=== PATIENT | female | born 2000 | race Caucasian/White ===

== ENCOUNTER → 2019-01-07 | Outpatient (CLI) | payer OTHER ==
[2019-01-07 09:38] LABS: PLATELET COUNT, AUTOMATED 298 K/uL (150-450)
--- NOTE | 2019-01-07 10:47 | RADIOLOGY IMAGING REPORT ---
FACILITY: [facility] [place] PATIENT NAME: Ruth Saravia : 2000 MR: [id number] V: [id number] EXAM DATE: ORDERING PHYSICIAN: [facility] TECHNOLOGIST: [place] [facility] [place] Ruth Saravia : 2000 Visit/Account:[id number] Date of Sevice: 01/07/2019 GALLBLADDER ADDITIONAL PERTINENT HISTORY: Right upper quadrant pain with eating COMPARISON STUDIES: None. FINDINGS: Liver: Negative. Gallbladder: Negative. Common duct: Normal. Measuring 2 mm. Pancreas: Negative. Right kidney: Negative, measuring 9.5 cm in length. Proximal IVC/Aorta: Negative. Ascites: Negative. IMPRESSION: Normal right upper quadrant abdominal sonogram. Report Dictated By: Krystian Perkins MD at 01/07/2019 10:41 AM Report E-Signed By: Krystian Perkins MD at 01/07/2019 10:42 AM WSN:[email or web address]
== END ==
LOC: US 08:32
DX: R10.11 Right upper quadrant pain (principal)
CPT/HCPCS: 36415; 76705; 82040; 82247; 82310; 82374; 82435; 82565; 82947; 84075; 84132; 84155; 84295; 84450; 84460; 84520; 85025

== ENCOUNTER 2019-02-20 22:10 | Emergency (ER) | payer OTHER ==
--- NOTE | 2019-02-20 22:12 | ER Report ---
History and Physical Time Seen By MD: 22:10 HPI/ROS CHIEF COMPLAINT: Shortness of breath, chest pain, nausea HISTORY OF PRESENT ILLNESS: 19-year-old female presents with sudden onset one hour of epigastric, chest discomfort with nausea and shortness of breath. Patient worked out earlier in the day. She denies any injury or pain with exertion. She denies recent illness or infectious symptoms. Patient reports eating out for dinner. And then noting onset of symptoms. Shortly after arrival, patient vomited up her dinner. She began to feel better. REVIEW OF SYSTEMS: Respiratory: As above Cardiovascular: As above Gastrointestinal: As above Musculoskeletal: No back pain. Allergies: Coded Allergies: No Known Drug Allergies (Unverified , 02/20/19) Home Meds Active Scripts Ondansetron 4 Mg Odt (ONDANSETRON 4 MG ODT) 4 Mg Tab.rapdis, 4 MG PO Q6H PRN for NAUSEA/VOMITING, #10 TAB Prov:DIONNE GAMING DO 02/20/19 Reported Medications [ Control] No Conflict Check 02/20/19 Reviewed Nurses Notes: Yes Old Medical Records Reviewed: Yes Constitutional Vital Sign - Last 24 Hours 02/20/19 02/20/19 02/20/19 02/20/19 22:12 22:16 22:22 22:22 Temp 98.8 Pulse 104 99 Resp 14 18 B/P (MAP) 123/79 (94) 123/79 Pulse Ox 94 96 O2 Delivery Room Air Room Air 02/20/19 02/20/19 02/20/19 02/20/19 22:25 22:35 22:40 22:55 Pulse 99 116 111 Resp 18 Pulse Ox 94 91 98 02/20/19 02/20/19 02/20/19 02/20/19 23:00 23:30 23:33 23:45 Pulse 114 114 112 B/P (MAP) 108/33 (58) Pulse Ox 93 95 97 02/21/19 02/21/19 02/21/19 00:00 00:05 00:20 Pulse 108 114 B/P (MAP) 97/42 (60) Pulse Ox 95 95 92 Physical Exam General Appearance: The patient is alert, has no immediate need for airway protection and no current signs of toxicity. Vital signs stable, afebrile, pulse ox normal HEENT: Pupils equal and round no injection. TMs normal, oropharynx without redness or exudate Respiratory: Chest is non tender, lungs are clear to auscultation. No chest wall tenderness Cardiac: regular rate and rhythm Gastrointestinal: Abdomen is soft, mild epigastric tenderness, no masses, bowel sounds normal. Musculoskeletal: Neck: Neck is supple and non tender. No lymphadenopathy Extremities have full range of motion and are non tender. Skin: No rashes or lesions. DIFFERENTIAL DIAGNOSIS: After history and physical exam differential diagnosis was considered for chest pain including but not limited to myocardial ischemia, pericarditis pulmonary embolus, chest wall pain, pleural inflammation and pulmonary infectious causes. Additionally,abdominal pain including but not limited to appendicitis, cholecystitis, gastritis, food poisoning, gastroenteritis, viral syndrome and urinary tract infection. Medical Decision Making Data Points Laboratory Hematology Test 02/20/19 22: Urine HCG, Qualitative Negative (NEGATIVE) Chemistry Test 02/20/19 22: Urine HCG, Qualitative Negative (NEGATIVE) Urinalysis Test 02/20/19 22: Urine HCG, Qualitative Negative (NEGATIVE) EKG/Imaging EKG Interpretation 12 lead EK Rhythm: Sinus tachycardia, rate 111 Barbeau: normal QRS: normal ST segments: normal, no old EKGs for comparison Imaging X-ray: Two-view chest x-ray was obtained. I viewed the images myself on the PACS system. My interpretation of the images is: No infiltrate, no effusion, normal mediastinum. The radiologist interpretation had no clinically significant variation from this interpretation. ED Course/Re-evaluation ED Course Patient was admitted to an examination room. H&P was done. The differential diagnoses was considered. Patient with shortness of breath, chest and epigastric discomfort. EKG, chest x-ray were performed. Patient was medicated with Zofran and ibuprofen. She subsequently vomited shortly after receiving the Zofran. Patient admits to eating out. She is beginning to wonder she has food poisoning. Patient also states is a family history of gallbladder disease. Patient is no right upper quadrant tenderness. Patient was able tolerate by mouth clear fluids. To be discharged home on Zofran and ibuprofen. She is advised clear liquid diet for 24-48 hours and advance to Yudelka diet. Decision to Disposition Date: Feb 20, 2019 Decision to Disposition Time: 23:39 Depart Departure Latest Vital Signs Vital Signs Date Time Temp Pulse Resp B/P (MAP) Pulse Ox O2 Delivery O2 Flow Rate FiO2 6/24/19 00:20 92 02/21/19 00:05 114 02/21/19 00:00 97/42 (60) 02/20/19 22:35 18 02/20/19 22:22 Room Air 02/20/19 22:16 98.8 Impression: Primary Impression: Chest pain Additional Impressions: Nausea and vomiting Food poisoning Condition: Improved Disposition: HOME OR SELF-CARE New Scripts Ondansetron 4 Mg Odt (ONDANSETRON 4 MG ODT) 4 Mg Tab.rapdis 4 MG PO Q6H PRN for NAUSEA/VOMITING, #10 TAB Prov: DIONNE GAMING DO 02/20/19 Patient Instructions: Clear Liquid Diet (ED), Food Poisoning (ED) Additional Instructions: Follow clear liquid diet for 24-48 hours, then advance to the brat diet, bananas, rice, applesauce and toast Avoid fatty food, greasy foods, vegetables and dairy for at least 48 hours, potentially 72 hours Return to the ER for any worsening Follow-up with primary care if unimproved in 3-5 days. Problem Qualifiers Primary Impression: Chest pain Chest pain type: unspecified Qualified Codes: R07.9 - Chest pain, unspecified Additional Impressions: Nausea and vomiting Vomiting type: unspecified Vomiting Intractability: unspecified Qualified Codes: R11.2 - Nausea with vomiting, unspecified Food poisoning Encounter type: initial encounter Injury intent: accidental or unintentional Qualified Codes: T62.91XA - Toxic effect of unspecified noxious substance eaten as food, accidental (unintentional), initial encounter DIONNE GAMING DO Feb 20, 2019 22:12
[2019-02-20] MEDS ORDERED: ALBUTEROL/IPRATROPIUM 3 ML NEB NEB ONE (22:15)
[2019-02-20] MEDS ORDERED: BIRTH CONTROL (22:18)
[2019-02-20] MEDS: IBUPROFEN 600 MG TAB PO ONE ×2 (22:25→23:02)
[2019-02-20] MEDS ORDERED: APAP/HYDROCODONE 325/5 TAB PO ONE (22:25)
[2019-02-20] MEDS ORDERED: ONDANSETRON 4 MG ODT TABDP SL ONE ×2 (22:25→23:35)
--- NOTE | 2019-02-20 23:37 | RADIOLOGY IMAGING REPORT ---
FACILITY: [facility] - [place] PATIENT NAME: Ruth Saravia : 2000 MR: [id number] V: [id number] EXAM DATE: ORDERING PHYSICIAN: DIONNE GAMING TECHNOLOGIST: Location: [facility] Patient: Ruth Saravia : 2000 Visit/Account:[id number] Date of Sevice: 02/20/2019 EXAMINATION: Chest radiographs 2 views HISTORY: Difficulty breathing. Chest pain. COMPARISON: None. FINDINGS: PA and lateral views of the chest are submitted. Lines/tubes: None. Lungs/pleura: No focal consolidation or pleural effusion. Pulmonary vascularity is within normal luna its. No evidence of pneumothorax. Heart: Normal heart size. Mediastinum: Mediastinal contours are within normal limits. Bony structures/body wall: Negative. IMPRESSION: No radiographic evidence of acute cardiopulmonary disease. Report Dictated By: Balbir Duncan MD at 02/20/2019 11:30 PM Report E-Signed By: Balbir Duncan MD at 02/20/2019 11:31 PM WSN:[id number]
--- NOTE | 2019-02-20 23:38 | EKG ---
FACILITY: [facility] PATIENT NAME: ERIK PINEDA : [id number] MR: [id number] V: [id number] EXAM DATE: ORDERING PHYSICIAN: DIONNE GAMING TECHNOLOGIST: WARREN Merino Reason : CP Blood Pressure : / mmHG Vent. Rate : 111 BPM Atrial Rate : 111 BPM P-R Int : 146 ms QRS Dur : 080 ms QT Int : 324 ms P-R-T Axes : 053 080 033 degrees QTc Int : 440 ms Sinus tachycardia Otherwise normal ECG No previous ECGs available Confirmed by YOSELIN PALACIO ([id number]) on 02/21/2019 6:21:49 AM Referred By: Confirmed By:YOSELIN PALACIO
[2019-02-20] MEDS ORDERED: ONDA4TAB9 PO (23:48)
[2019-02-20] MEDS ORDERED: ONDANSETRON 4 MG ODT TH SL ONE (23:50)
[2019-02-21] VITALS: BP 97/42
== END 2019-02-21 00:23 | disposition home or self-care (01) ==
LOC: ER 22:26
DX: T62.91XA Toxic effect of unspecified noxious substance eaten as food, accidental (unintentional), initial encounter (principal); R07.9 Chest pain, unspecified; R11.2 Nausea with vomiting, unspecified
CPT/HCPCS: 71046; 81025; 93005; 94640; 99284; J7620; S0119